=== PATIENT | female | born 1945 | race Caucasian/White ===

== ENCOUNTER 2024-03-07 06:55 | Emergency (ER) | payer OTHER ==
[~2024-03-07] VITALS: Ht 154.9 cm; Wt 73.5 kg
[2024-03-07] MEDS ORDERED: OXYMETAZOLINE HCL NASAL SPRAY 30 ML BOTTLE NS ONE (07:13)
[2024-03-07] MEDS: OXYMETAZOLINE HCL NASAL SPRAY 30 ML BOTTLE NS ONE (07:20)
[2024-03-07 09:05] VITALS: BP 112/64; TEMP 98.5; O2SAT 99
== END 2024-03-07 09:06 ==
LOC: ER 07:07
DX: R04.0 Epistaxis (principal); I11.0 Hypertensive heart disease with heart failure; I50.9 Heart failure, unspecified; Z79.01 Long term (current) use of anticoagulants; Z86.73 Personal history of transient ischemic attack (TIA), and cerebral infarction without residual deficits; Z88.2 Allergy status to sulfonamides

== ENCOUNTER 2024-12-25 00:19 | Inpatient (IN) | payer OTHER ==
[~2024-12-25] VITALS: Ht 152.4 cm; Wt 70.8 kg
[2024-12-25] MEDS ORDERED: MECLIZINE HCL 25 MG TABLET ONE (00:52)
[2024-12-25] MEDS: MECLIZINE HCL 25 MG TABLET PO ONE (00:54)
[2024-12-25 01:19] LABS: APPEARANCE,URINE CLEAR (CLEAR); BLOOD, URINE NEGATIVE Ery/uL (NEGATIVE); LEUKOCYTE ESTERASE ,URINE TRACE (NEGATIVE); NITRITE, URINE NEGATIVE (NEGATIVE); PLATELET COUNT (AUTO) 164 K/uL (150-450); RED BLOOD CELL COUNT(AUTO) 3.77 MIL/uL (4.0-5.2); RED CELL DISTRIBUTION WIDTH 14.5 % (11.5-15.0); UGLUCOSE NEGATIVE (NEGATIVE); WHITE BLOOD COUNT (AUTO) 4.2 K/uL (4.3-11.0)
[2024-12-25 01:27] LABS: CALCIUM, SERUM 10.1 mg/dL (8.5-10.1); CREATININE 0.8 mg/dL (0.6-1.3); SODIUM SERUM 142 mmol/L (136-145); UREA NITROGEN, BLOOD 22 mg/dL (7-18)
[2024-12-25 01:36] LABS: ADD URINE CULTURE NO; SQUAMOUS EPITHELIAL CELL,UR Few /HPF (None Seen)
[2024-12-25 01:45] LABS: ASPARTATE AMINOTRANSFERASE 18 U/L (15-37); TOTAL PROTEIN, SERUM 7.2 g/dL (6.4-8.2)
[2024-12-25 01:50] LABS: INR 0.91 (0.91-1.10)
[2024-12-25] MEDS: ASPIRIN 325 MG TABLET PO ONE (02:00)
[2024-12-25] MEDS ORDERED: ASPIRIN 325 MG TABLET ONE (03:47)
[2024-12-25 04:00] VITALS: BP 144/93; TEMP 98.4; O2SAT 100
[2024-12-25] MEDS ORDERED: HYDROCODONE/APAP 5/325MG TABLET PO PRN (04:00)
[2024-12-25] MEDS ORDERED: Z GUARD REMEDY 4 OZ OINT TP PRN (04:00)
[2024-12-25] MEDS ORDERED: ACETAMINOPHEN 325 MG TABLET PO PRN (04:00)
[2024-12-25] MEDS ORDERED: MAG HYDROX/AL HYDROX/SIMETH 30 ML UDC PO PRN (04:00)
[2024-12-25] MEDS ORDERED: ONDANSETRON HCL/PF 4 MG/2 ML VIAL IVP PRN (04:00)
[2024-12-25] MEDS: IV NS 0.9% 1,000 ML IV PRN (04:28)
[2024-12-25 07:30] VITALS: BP 149/100; TEMP 97.3; O2SAT 100
[2024-12-25] MEDS: PANTOPRAZOLE 40 MG TABLET.DR PO SCH (07:38)
[2024-12-25] MEDS ORDERED: CHOL200026 PO (07:50)
[2024-12-25] MEDS ORDERED: ASPI-1420 PO (07:50)
[2024-12-25] MEDS ORDERED: FERR325T30 PO (07:50)
[2024-12-25] MEDS ORDERED: ACET-73 PO (07:50)
[2024-12-25] MEDS ORDERED: CLOP75TA15 PO (07:50)
[2024-12-25] MEDS ORDERED: SACU1TAB PO (07:50)
[2024-12-25] MEDS ORDERED: SENN-261 PO (07:50)
[2024-12-25] MEDS ORDERED: ATOR80TA PO (07:50)
[2024-12-25] MEDS ORDERED: POLY17PO4 PO (07:50)
[2024-12-25] MEDS ORDERED: POTA10TA11 PO (07:50)
[2024-12-25] MEDS ORDERED: DOCU100C36 PO (07:50)
[2024-12-25] MEDS ORDERED: FURO20TA4 PO (07:50)
[2024-12-25] MEDS ORDERED: CARV3.122 PO (07:50)
[2024-12-25] MEDS ORDERED: NITR0.4T48 SL (07:50)
[2024-12-25 08:00] VITALS: BP 149/80; TEMP 97.3; O2SAT 100
[2024-12-25] MEDS: ENOXAPARIN SODIUM 40 MG/0.4 ML DISP.SYRIN SQ SCH (08:29)
[2024-12-25] MEDS: CARVEDILOL 3.125 MG TABLET PO SCH (10:09)
[2024-12-25] MEDS: ASPIRIN EC 81 MG TABLET.DR PO SCH (10:09)
[2024-12-25] MEDS: CLOPIDOGREL BISULFATE 75 MG TABLET PO SCH (10:10)
[2024-12-25] MEDS ORDERED: NITROGLYCERIN 0.4 MG/TAB BOTTLE SL PRN (10:30)
[2024-12-25 12:00] VITALS: BP 131/66; TEMP 98.2; O2SAT 99
[2024-12-25 12:11] LABS: CALCIUM, SERUM 9.9 mg/dL (8.5-10.1); CREATININE 0.7 mg/dL (0.6-1.3); SODIUM SERUM 143.0 mmol/L (136-145); UREA NITROGEN, BLOOD 19.0 mg/dL (7-18)
[2024-12-25 12:16] LABS: PLATELET COUNT (AUTO) 155 K/uL (150-450); RED BLOOD CELL COUNT(AUTO) 3.70 MIL/uL (4.0-5.2); RED CELL DISTRIBUTION WIDTH 14.6 % (11.5-15.0); WHITE BLOOD COUNT (AUTO) 3.9 K/uL (4.3-11.0)
[2024-12-25 12:17] LABS: ASPARTATE AMINOTRANSFERASE 21.0 U/L (15-37); PHOSPHORUS 3.0 mg/dL (2.5-4.9); TOTAL PROTEIN, SERUM 6.8 g/dL (6.4-8.2)
[2024-12-25 12:23] LABS: LDL 66.0 mg/dL (0-99)
[2024-12-25 16:00] VITALS: BP 117/78; TEMP 97.3; O2SAT 100
[2024-12-25 20:00] VITALS: BP_SYST 103; BP_SYST 110; BP_DIAS 64; BP_DIAS 69; TEMP 97.9; O2SAT 99
[2024-12-25] MEDS: ATORVASTATIN 40 MG TABLET PO SCH (21:19)
[2024-12-26] VITALS: BP_SYST 111; BP_SYST 116; BP_DIAS 78; BP_DIAS 82; TEMP 97.5; O2SAT 97
[2024-12-26 04:00] VITALS: BP 154/85; TEMP 97.6; O2SAT 97
[2024-12-26 06:49] LABS: PLATELET COUNT (AUTO) 145 K/uL (150-450); RED BLOOD CELL COUNT(AUTO) 3.23 MIL/uL (4.0-5.2); RED CELL DISTRIBUTION WIDTH 14.5 % (11.5-15.0); WHITE BLOOD COUNT (AUTO) 3.9 K/uL (4.3-11.0)
[2024-12-26 06:50] LABS: LDL 53.0 mg/dL (0-99)
[2024-12-26 06:51] LABS: CALCIUM, SERUM 9.3 mg/dL (8.5-10.1); CREATININE 0.9 mg/dL (0.6-1.3); PHOSPHORUS 3.3 mg/dL (2.5-4.9); SODIUM SERUM 147.0 mmol/L (136-145); UREA NITROGEN, BLOOD 17.0 mg/dL (7-18)
[2024-12-26 08:00] VITALS: BP_SYST 110; BP_SYST 96; BP_DIAS 44; BP_DIAS 64; TEMP 98.2; O2SAT 96
[2024-12-26] MEDS ORDERED: ASPIRIN 81 MG TAB.CHEW PO SCH (09:00)
[2024-12-26] MEDS: MAGNESIUM HYDROXIDE 30 ML UDC PO PRN (09:53)
[2024-12-26] MEDS ORDERED: MECL-159 PO (09:58)
[2024-12-26 12:00] VITALS: BP_SYST 100; BP_SYST 101; BP_DIAS 71; BP_DIAS 75; TEMP 98.4; O2SAT 99
== END 2024-12-26 16:00 | DRG 640 ==
LOC: ER 00:25 → TELE1 03:07
PROVIDERS: ADMIT Nurse Practitioner Acute Care; ATTEND Nurse Practitioner Acute Care
DX: E86.0 Dehydration (principal); I21.A1 Myocardial infarction type 2; I25.10 Atherosclerotic heart disease of native coronary artery without angina pectoris; I11.0 Hypertensive heart disease with heart failure; I50.9 Heart failure, unspecified; D72.819 Decreased white blood cell count, unspecified; F03.90 Unspecified dementia, unspecified severity, without behavioral disturbance, psychotic disturbance, mood disturbance, and anxiety; Z86.73 Personal history of transient ischemic attack (TIA), and cerebral infarction without residual deficits; Z88.2 Allergy status to sulfonamides; M47.816 Spondylosis without myelopathy or radiculopathy, lumbar region; R42 Dizziness and giddiness
CPT/HCPCS: 36415; 70450-TC; 71045-TC; 80048-TC; 80053-TC; 80061-TC; 80076-TC; 81001; 83735-TC; 84100-TC; 84439-TC; 84443-TC; 84484-TC; 85025-TC; 85730-TC; 93307-TC; 97112-TC; 97116-TC; 97530-TC; A4223; G0378; J1650; J3490; J8597